=== PATIENT | female | born 1985 | race Caucasian/White ===

== ENCOUNTER → 2023-05-16 | Outpatient (REF) | payer BC | LOC: M WUC 19:14 | PROVIDERS: ATTEND Nurse Practitioner Family | DX: R30.0 Dysuria (principal) ==

== ENCOUNTER → 2023-07-09 | Outpatient (REF) | payer OTHER, BC ==
[2023-07-09 10:01] LABS: APPEARANCE, URINE HAZY (CLEAR); BACTERIA, URINE AUTO NEGATIVE (NEGATIVE); BILIRUBIN, URINE AUTO NEGATIVE (NEGATIVE); BLOOD, URINE BLOOD NEGATIVE (NEGATIVE); COLOR, URINE YELLOW (YELLOW); GLUCOSE, URINE (UA) AUTO NEGATIVE (NEGATIVE); KETONE, URINE AUTO TRACE mg/dL (NEGATIVE); LEUKOCYTE ESTERASE, URINE AUTO NEGATIVE (NEGATIVE); MUCUS, URINE SMALL (NEGATIVE); NITRITE, URINE AUTO NEGATIVE (NEGATIVE); PROTEIN, URINE AUTO 1+ mg/dL (NEGATIVE); RBC, URINE AUTO 0 /HPF (0-3); SPECIFIC GRAVITY URINE AUTO 1.027 (1.002-1.035); SQUAMOUS EPITHELIAL CELL UR AU 5 /HPF (0-6); UROBILINOGEN, URINE AUTO 0.2 mg/dL (0.0-2.0); WBC, URINE AUTO 1 /HPF (0-3)
== END ==
LOC: M SMT 09:44
PROVIDERS: ATTEND Physician Assistant
DX: R31.21 Asymptomatic microscopic hematuria (principal)

== ENCOUNTER → 2023-08-14 | Outpatient (CLI) | payer OTHER ==
[2023-08-14 13:31] LABS: HEMATOCRIT 42.9 % (36.0-47.0); HEMATOCRIT 43.5 % (36.0-47.0); HEMOGLOBIN 14.2 g/dl (12.0-15.5); MEAN CORPUSCULAR HEMOGLOBIN 31.7 pg (27.0-33.0); MEAN CORPUSCULAR HGB CONC 32.6 g/dl (32.0-36.5); MEAN CORPUSCULAR VOLUME 97.1 fl (80.0-96.0); PLATELET COUNT, AUTOMATED 384 10^3/uL (150-450); RED BLOOD COUNT 4.48 10^6/uL (4.00-5.40); WHITE BLOOD COUNT 10.2 10^3/uL (4.0-10.0)
[2023-08-14 14:05] LABS: THYROID STIMULATING HORMONE 2.845 uIU/ML (0.55-4.78); THYROXINE (T4) 13.1 UG/DL (4.5-10.9)
[2023-08-14 14:06] LABS: FREE T4 1.12 NG/DL (0.89-1.76); VITAMIN B12 LEVEL 306 PG/ML (211-911)
[2023-08-14 14:07] LABS: ALBUMIN 3.1 G/DL (3.2-5.2); ALKALINE PHOSPHATASE 66 U/L (46-116); ALT/SGPT 20 U/L (7.0-40); AST/SGOT 11 U/L (<34); BILIRUBIN,TOTAL 0.5 MG/DL (0.3-1.2); BLOOD UREA NITROGEN 14 MG/DL (9-23); CALCIUM LEVEL 8.9 MG/DL (8.5-10.1); CARBON DIOXIDE LEVEL 28 MMOL/L (20-31); CHLORIDE LEVEL 103 MMOL/L (98-107); CHOLESTEROL LEVEL 190 MG/DL (<200); CHOLESTEROL RISK RATIO 3.25 (<5); CREATININE FOR GFR 0.58 MG/DL (0.55-1.30); GLOMERULAR FILTRATION RATE > 60.0 (>60); GLUCOSE, FASTING 102 MG/DL (60-100); HDL CHOLESTEROL 58.3 MG/DL (>40); LDL CHOLESTEROL 110.7 MG/DL (<100); NON-HDL-C 131.7 MG/DL; POTASSIUM SERUM 3.9 MMOL/L (3.5-5.1); SODIUM LEVEL 141 MMOL/L (136-145); TOTAL 25(OH) VITAMIN D 59.2 NG/ML (20.0-100.0); TOTAL PROTEIN 6.4 G/DL (5.7-8.2); TRIGLYCERIDES LEVEL 105 MG/DL (<150)
[2023-08-14 14:10] LABS: FREE THYROXINE INDEX 3.6 % (1.3-4.8); T UPTAKE 27.7 % (22.5-37.0); THYROID PEROXIDASE ANTIBODY < 28.0 U/ML (<60.0)
[2023-08-14 14:30] LABS: HEMOGLOBIN A1c 6.1 % (4.0-6.0)
[2023-08-14 14:38] LABS: HEPATITIS C VIRUS ABY INDEX 0.05 INDEX (<0.8)
== END ==
LOC: M PLALAB 11:31
PROVIDERS: ATTEND Student in an Organized Health Care Education/Training Program
DX: M06.00 Rheumatoid arthritis without rheumatoid factor, unspecified site (principal); Z76.89 Persons encountering health services in other specified circumstances; Z79.52 Long term (current) use of systemic steroids; E55.9 Vitamin D deficiency, unspecified; R20.2 Paresthesia of skin

== ENCOUNTER → 2023-09-14 | Outpatient (CLI) | payer OTHER | LOC: M PLAIMG 14:58 | PROVIDERS: ATTEND Physician Assistant | DX: J45.40 Moderate persistent asthma, uncomplicated (principal) ==

== ENCOUNTER → 2023-09-14 | Outpatient (CLI) | payer OTHER | LOC: M PLAIMG 14:59 | PROVIDERS: ATTEND Physician Assistant | DX: Z87.442 Personal history of urinary calculi (principal) ==

== ENCOUNTER → 2023-10-09 | Outpatient (REF) | payer OTHER ==
[2023-10-09 18:33] LABS: APPEARANCE, URINE HAZY (CLEAR); BACTERIA, URINE AUTO 1+ (NEGATIVE); BILIRUBIN, URINE AUTO NEGATIVE (NEGATIVE); BLOOD, URINE BLOOD 1+ (NEGATIVE); COLOR, URINE YELLOW (YELLOW); GLUCOSE, URINE (UA) AUTO NEGATIVE (NEGATIVE); KETONE, URINE AUTO NEGATIVE (NEGATIVE); LEUKOCYTE ESTERASE, URINE AUTO 3+ (NEGATIVE); MUCUS, URINE MODERATE (NEGATIVE); NITRITE, URINE AUTO POSITIVE (NEGATIVE); PROTEIN, URINE AUTO 2+ mg/dL (NEGATIVE); RBC, URINE AUTO 23 /HPF (0-3); SPECIFIC GRAVITY URINE AUTO 1.019 (1.002-1.035); SQUAMOUS EPITHELIAL CELL UR AU 4 /HPF (0-6); UROBILINOGEN, URINE AUTO 0.2 mg/dL (0.0-2.0); WBC, URINE AUTO TNTC /HPF (0-3)
== END ==
LOC: EEVIPCON 17:09 → M SMT 17:09
PROVIDERS: ATTEND Physician Assistant
DX: R30.0 Dysuria (principal)

== ENCOUNTER → 2023-10-22 | Outpatient (REF) | payer OTHER ==
[2023-10-22 18:27] LABS: APPEARANCE, URINE TURBID (CLEAR); BACTERIA, URINE AUTO NEGATIVE (NEGATIVE); BILIRUBIN, URINE AUTO NEGATIVE (NEGATIVE); BLOOD, URINE BLOOD NEGATIVE (NEGATIVE); COLOR, URINE AMBER (YELLOW); GLUCOSE, URINE (UA) AUTO 2+ mg/dL (NEGATIVE); KETONE, URINE AUTO NEGATIVE (NEGATIVE); LEUKOCYTE ESTERASE, URINE AUTO TRACE (NEGATIVE); MUCUS, URINE LARGE (NEGATIVE); NITRITE, URINE AUTO NEGATIVE (NEGATIVE); PROTEIN, URINE AUTO NEGATIVE (NEGATIVE); RBC, URINE AUTO 6 /HPF (0-3); SPECIFIC GRAVITY URINE AUTO 1.032 (1.002-1.035); SQUAMOUS EPITHELIAL CELL UR AU 1 /HPF (0-6); UROBILINOGEN, URINE AUTO 0.2 mg/dL (0.0-2.0); WBC, URINE AUTO 40 /HPF (0-3)
== END ==
LOC: M SMT 16:59
PROVIDERS: ATTEND Physician Assistant
DX: N39.0 Urinary tract infection, site not specified (principal)

== ENCOUNTER → 2023-12-04 | Outpatient (CLI) | payer OTHER ==
[2023-12-04 17:57] LABS: HEMOGLOBIN A1c 7.1 % (4.0-6.0)
[2023-12-05 11:00] LABS: MALB URINE SIEMENS < 3.0 MG/L; MAU/CREAT RATIO 3.2 MCG/MG (0.0-30.0)
[2023-12-05 11:38] LABS: APPEARANCE, URINE TURBID (CLEAR); BACTERIA, URINE AUTO 1+ (NEGATIVE); BILIRUBIN, URINE AUTO NEGATIVE (NEGATIVE); BLOOD, URINE BLOOD NEGATIVE (NEGATIVE); COLOR, URINE AMBER (YELLOW); GLUCOSE, URINE (UA) AUTO NEGATIVE (NEGATIVE); KETONE, URINE AUTO NEGATIVE (NEGATIVE); LEUKOCYTE ESTERASE, URINE AUTO NEGATIVE (NEGATIVE); MUCUS, URINE SMALL (NEGATIVE); NITRITE, URINE AUTO NEGATIVE (NEGATIVE); PROTEIN, URINE AUTO NEGATIVE (NEGATIVE); RBC, URINE AUTO 1 /HPF (0-3); SPECIFIC GRAVITY URINE AUTO 1.017 (1.002-1.035); SQUAMOUS EPITHELIAL CELL UR AU 2 /HPF (0-6); UROBILINOGEN, URINE AUTO 0.2 mg/dL (0.0-2.0); WBC, URINE AUTO 1 /HPF (0-3)
== END ==
LOC: M PLALAB 16:40
PROVIDERS: ATTEND Family Medicine
DX: E11.29 Type 2 diabetes mellitus with other diabetic kidney complication (principal)

== ENCOUNTER → 2024-01-23 | Outpatient (REF) | payer OTHER ==
[2024-01-23 18:18] LABS: APPEARANCE, URINE HAZY (CLEAR); BACTERIA, URINE AUTO 1+ (NEGATIVE); BILIRUBIN, URINE AUTO NEGATIVE (NEGATIVE); BLOOD, URINE BLOOD NEGATIVE (NEGATIVE); COLOR, URINE YELLOW (YELLOW); GLUCOSE, URINE (UA) AUTO NEGATIVE (NEGATIVE); KETONE, URINE AUTO NEGATIVE (NEGATIVE); LEUKOCYTE ESTERASE, URINE AUTO NEGATIVE (NEGATIVE); MUCUS, URINE SMALL (NEGATIVE); NITRITE, URINE AUTO NEGATIVE (NEGATIVE); PROTEIN, URINE AUTO NEGATIVE (NEGATIVE); RBC, URINE AUTO 0 /HPF (0-3); SPECIFIC GRAVITY URINE AUTO 1.026 (1.002-1.035); SQUAMOUS EPITHELIAL CELL UR AU 2 /HPF (0-6); UROBILINOGEN, URINE AUTO 0.2 mg/dL (0.0-2.0); WBC, URINE AUTO 1 /HPF (0-3)
== END ==
LOC: M SMT 16:53
PROVIDERS: ATTEND Physician Assistant
DX: N39.0 Urinary tract infection, site not specified (principal)

== ENCOUNTER → 2024-01-23 | Outpatient (CLI) | payer OTHER | LOC: M PLAIMG 13:58 | PROVIDERS: ATTEND Physician Assistant Medical | DX: M25.571 Pain in right ankle and joints of right foot (principal); M77.31 Calcaneal spur, right foot ==

== ENCOUNTER → 2024-02-26 | Outpatient (CLI) | payer OTHER | LOC: M SOG 08:00 | PROVIDERS: ATTEND Physician Assistant | DX: M25.571 Pain in right ankle and joints of right foot (principal); M77.31 Calcaneal spur, right foot; M19.071 Primary osteoarthritis, right ankle and foot ==

== ENCOUNTER → 2024-03-05 | Outpatient (CLI) | payer OTHER ==
[2024-03-05 18:26] LABS: BASO % 0.3 % (0.0-1.0); EOS % 0.1 % (0.0-3.0); HEMATOCRIT 44.1 % (36.0-47.0); HEMOGLOBIN 14.8 g/dl (12.0-15.5); LYMPH # 1.6 10^3/uL (1.5-5.0); LYMPH % 13.3 % (24.0-44.0); MEAN CORPUSCULAR HEMOGLOBIN 32.2 pg (27.0-33.0); MEAN CORPUSCULAR HGB CONC 33.6 g/dl (32.0-36.5); MEAN CORPUSCULAR VOLUME 95.9 fl (80.0-96.0); MONO # 0.5 10^3/uL (0.0-0.8); MONO % 4.1 % (2.0-8.0); NEUTROPHILS # 9.8 10^3/uL (1.5-8.5); NEUTROPHILS % 81.9 % (36.0-66.0); PLATELET COUNT, AUTOMATED 368 10^3/uL (150-450)
[2024-03-05 18:56] LABS: THYROID STIMULATING HORMONE 1.096 uIU/ML (0.55-4.78)
[2024-03-05 18:57] LABS: FERRITIN 66.7 NG/ML (7.3-270.7)
[2024-03-05 18:58] LABS: FREE T4 1.08 NG/DL (0.89-1.76)
[2024-03-05 18:59] LABS: ALBUMIN 3.5 G/DL (3.2-5.2); ALKALINE PHOSPHATASE 66 U/L (46-116); ALT/SGPT 24 U/L (7.0-40); AST/SGOT < 8 U/L (<34); BILIRUBIN,TOTAL 0.8 MG/DL (0.3-1.2); BLOOD UREA NITROGEN 15 MG/DL (9-23); CALCIUM LEVEL 9.7 MG/DL (8.5-10.1); CARBON DIOXIDE LEVEL 27 MMOL/L (20-31); CHLORIDE LEVEL 103 MMOL/L (98-107); CREATININE FOR GFR 0.61 MG/DL (0.55-1.30); GLOMERULAR FILTRATION RATE > 60.0 (>60); GLUCOSE, FASTING 114 MG/DL (60-100); POTASSIUM SERUM 4.3 MMOL/L (3.5-5.1); SODIUM LEVEL 139 MMOL/L (136-145); TOTAL PROTEIN 6.7 G/DL (5.7-8.2)
[2024-03-05 19:00] LABS: HEMOGLOBIN A1c 6.7 % (4.0-6.0)
== END ==
LOC: M PLALAB 16:29
PROVIDERS: ATTEND Family Medicine
DX: E11.29 Type 2 diabetes mellitus with other diabetic kidney complication (principal); R68.89 Other general symptoms and signs; M32.9 Systemic lupus erythematosus, unspecified; R11.2 Nausea with vomiting, unspecified

== ENCOUNTER → 2024-03-05 | Outpatient (CLI) | payer OTHER ==
[2024-03-05 18:17] LABS: APPEARANCE, URINE HAZY (CLEAR); BACTERIA, URINE AUTO NEGATIVE (NEGATIVE); BILIRUBIN, URINE AUTO NEGATIVE (NEGATIVE); BLOOD, URINE BLOOD NEGATIVE (NEGATIVE); COLOR, URINE YELLOW (YELLOW); GLUCOSE, URINE (UA) AUTO NEGATIVE (NEGATIVE); KETONE, URINE AUTO TRACE mg/dL (NEGATIVE); LEUKOCYTE ESTERASE, URINE AUTO NEGATIVE (NEGATIVE); MUCUS, URINE SMALL (NEGATIVE); NITRITE, URINE AUTO NEGATIVE (NEGATIVE); PROTEIN, URINE AUTO NEGATIVE (NEGATIVE); RBC, URINE AUTO 0 /HPF (0-3); SPECIFIC GRAVITY URINE AUTO 1.021 (1.002-1.035); SQUAMOUS EPITHELIAL CELL UR AU 1 /HPF (0-6); UROBILINOGEN, URINE AUTO 0.2 mg/dL (0.0-2.0); WBC, URINE AUTO 0 /HPF (0-3)
== END ==
LOC: M PLAIMG 16:27
PROVIDERS: ATTEND Physician Assistant
DX: Z87.442 Personal history of urinary calculi (principal)

== ENCOUNTER → 2024-04-28 | Outpatient (CLI) | payer OTHER | LOC: M SOG 08:00 | PROVIDERS: ATTEND Physician Assistant | DX: M25.571 Pain in right ankle and joints of right foot (principal) ==

== ENCOUNTER → 2024-05-20 | Outpatient (REF) | payer OTHER ==
[2024-05-20 18:17] LABS: APPEARANCE, URINE CLEAR (CLEAR); BACTERIA, URINE AUTO 1+ (NEGATIVE); BILIRUBIN, URINE AUTO NEGATIVE (NEGATIVE); BLOOD, URINE BLOOD NEGATIVE (NEGATIVE); COLOR, URINE YELLOW (YELLOW); GLUCOSE, URINE (UA) AUTO NEGATIVE (NEGATIVE); KETONE, URINE AUTO NEGATIVE (NEGATIVE); LEUKOCYTE ESTERASE, URINE AUTO NEGATIVE (NEGATIVE); MUCUS, URINE SMALL (NEGATIVE); NITRITE, URINE AUTO NEGATIVE (NEGATIVE); PROTEIN, URINE AUTO NEGATIVE (NEGATIVE); RBC, URINE AUTO 0 /HPF (0-3); SPECIFIC GRAVITY URINE AUTO 1.017 (1.002-1.035); SQUAMOUS EPITHELIAL CELL UR AU 1 /HPF (0-6); UROBILINOGEN, URINE AUTO 0.2 mg/dL (0.0-2.0); WBC, URINE AUTO 1 /HPF (0-3)
== END ==
LOC: M SMT 16:55
PROVIDERS: ATTEND Physician Assistant
DX: R30.0 Dysuria (principal)

== ENCOUNTER 2024-06-30 12:18 | Emergency (ER) | payer OTHER ==
[~2024-06-30] VITALS: Ht 170.2 cm; Wt 162.6 kg
[2024-06-30 13:04] LABS: BASO % 0.3 % (0.0-1.0); EOS % 0.1 % (0.0-3.0); HEMATOCRIT 50.4 % (36.0-47.0); HEMOGLOBIN 17.1 g/dl (12.0-15.5); LYMPH % 17.5 % (24.0-44.0); MEAN CORPUSCULAR HEMOGLOBIN 32.1 pg (27.0-33.0); MEAN CORPUSCULAR HGB CONC 33.9 g/dl (32.0-36.5); MEAN CORPUSCULAR VOLUME 94.7 fl (80.0-96.0); MONO # 0.8 10^3/uL (0.0-0.8); MONO % 6.7 % (2.0-8.0); NEUTROPHILS # 8.6 10^3/uL (1.5-8.5); NEUTROPHILS % 75.1 % (36.0-66.0); PLATELET COUNT, AUTOMATED 465 10^3/uL (150-450); RED BLOOD COUNT 5.32 10^6/uL (4.00-5.40); WHITE BLOOD COUNT 11.5 10^3/uL (4.0-10.0)
[2024-06-30 13:19] LABS: ERYTHROCYTE SEDIMENTATION RATE 49 mm/hr (0-20)
[2024-06-30 13:20] LABS: LIPASE 37 U/L (12-53)
[2024-06-30 13:22] LABS: ALBUMIN 4.2 G/DL (3.2-5.2); ALKALINE PHOSPHATASE 82 U/L (46-116); ALT/SGPT 30 U/L (7.0-40); AST/SGOT 15 U/L (<34); BILIRUBIN,DIRECT 0.3 MG/DL (<0.4); BILIRUBIN,TOTAL 0.9 MG/DL (0.3-1.2); BLOOD UREA NITROGEN 19 MG/DL (9-23); CARBON DIOXIDE LEVEL 22 MMOL/L (20-31); CHLORIDE LEVEL 102 MMOL/L (98-107); CK-MB VALUE MASS < 1.0 NG/ML (<3.6); CPK CREATINE PHOSPHOKINASE 88 U/L (34-145); CREATININE FOR GFR 0.77 MG/DL (0.55-1.30); GLOMERULAR FILTRATION RATE > 60.0 (>60); GLUCOSE, FASTING 189 MG/DL (60-100); MB/CK RELATIVE INDEX 1.13 (< OR =4); POTASSIUM SERUM 3.8 MMOL/L (3.5-5.1); SODIUM LEVEL 136 MMOL/L (136-145); TOTAL PROTEIN 7.9 G/DL (5.7-8.2)
[2024-06-30 13:26] LABS: FREE T4 1.74 NG/DL (0.89-1.76); THYROID STIMULATING HORMONE 2.437 uIU/ML (0.55-4.78)
[2024-06-30 13:31] LABS: HCG, SERUM QUALITATIVE NEGATIVE (NEGATIVE)
[2024-06-30] MEDS ORDERED: ISOVUE-370 76% 100ML VIAL As Ordered ONE (14:40)
[2024-06-30] MEDS: NS 1,000 ML IV ONE (15:14)
[2024-06-30 15:28] LABS: CK-MB VALUE MASS < 1.0 NG/ML (<3.6)
[2024-06-30 15:29] LABS: CPK CREATINE PHOSPHOKINASE 91 U/L (34-145); MB/CK RELATIVE INDEX 1.09 (< OR =4)
[2024-06-30 17:15] VITALS: BP 126/83
[2024-06-30 17:18] VITALS: TEMP 98.6; O2SAT 98
== END 2024-06-30 17:54 | disposition home or self-care (01) ==
LOC: M ED 12:18
DX: U07.1 COVID-19 (principal); R00.0 Tachycardia, unspecified; E11.9 Type 2 diabetes mellitus without complications; J45.909 Unspecified asthma, uncomplicated; E55.9 Vitamin D deficiency, unspecified; G47.33 Obstructive sleep apnea (adult) (pediatric); Z88.1 Allergy status to other antibiotic agents; Z88.2 Allergy status to sulfonamides; Z88.8 Allergy status to other drugs, medicaments and biological substances; Z91.040 Latex allergy status
CPT/HCPCS: 71045; 71275; 80048; 80076; 82550; 82553; 83690; 84439; 84443; 84484; 84703; 85025; 85652; 85730; 86140; 87486; 87581; 87633; 87798; 93005; 93041; 94760; 96360; 99285; Q9967

== ENCOUNTER → 2024-07-15 | Outpatient (REF) | payer OTHER | LOC: M LAB REF 12:31 | PROVIDERS: ATTEND Internal Medicine Pulmonary Disease | DX: J45.40 Moderate persistent asthma, uncomplicated (principal) ==

== ENCOUNTER 2024-07-29 15:43 | Outpatient (CLI) | payer OTHER ==
[~2024-07-29] VITALS: Ht 172.7 cm; Wt 176.3 kg
[2024-07-29 16:02] VITALS: BP 132/64; O2SAT 99
[2024-07-29] MEDS: ERTAPENEM SODIUM 1 GM in NS MINI-BAG PLUS 50 ML IV ONE (16:17)
[2024-07-29 16:50] VITALS: BP 128/62; O2SAT 99
== END 2024-07-29 16:19 | disposition home or self-care (01) ==
LOC: M INFU 15:43
PROVIDERS: ATTEND Physician Assistant
DX: J47.9 Bronchiectasis, uncomplicated (principal); B96.20 Unspecified Escherichia coli [E. coli] as the cause of diseases classified elsewhere; Z16.12 Extended spectrum beta lactamase (ESBL) resistance; Z88.1 Allergy status to other antibiotic agents; Z88.2 Allergy status to sulfonamides; Z91.040 Latex allergy status
CPT/HCPCS: 96365; J1335

== ENCOUNTER 2024-07-30 15:40 | Outpatient (CLI) | payer OTHER ==
[~2024-07-30] VITALS: Ht 175.3 cm; Wt 176.0 kg
[2024-07-30 15:53] VITALS: BP 140/83; O2SAT 97
[2024-07-30] MEDS: ERTAPENEM SODIUM 1 GM in NS MINI-BAG PLUS 50 ML IV ONE (16:14)
[2024-07-30 16:53] VITALS: BP 163/87; O2SAT 95
== END 2024-07-30 16:55 ==
LOC: M INFU 15:40
PROVIDERS: ATTEND Physician Assistant
DX: B96.20 Unspecified Escherichia coli [E. coli] as the cause of diseases classified elsewhere (principal); J47.9 Bronchiectasis, uncomplicated; Z16.12 Extended spectrum beta lactamase (ESBL) resistance
CPT/HCPCS: 96365; J1335

== ENCOUNTER 2024-07-31 16:40 | Outpatient (CLI) | payer OTHER ==
[~2024-07-31] VITALS: Ht 170.2 cm; Wt 167.0 kg
[2024-07-31 16:40] VITALS: BP 148/90; O2SAT 98
[2024-07-31] MEDS: ERTAPENEM SODIUM 1 GM in NS MINI-BAG PLUS 50 ML IV ONE (16:43)
[2024-07-31 17:40] VITALS: BP 140/87; O2SAT 99
== END 2024-07-31 17:40 ==
LOC: M INFU 16:40
PROVIDERS: ATTEND Physician Assistant
DX: B96.20 Unspecified Escherichia coli [E. coli] as the cause of diseases classified elsewhere (principal); J47.9 Bronchiectasis, uncomplicated; Z16.12 Extended spectrum beta lactamase (ESBL) resistance
CPT/HCPCS: 96365; J1335

== ENCOUNTER 2024-08-01 16:10 | Outpatient (CLI) | payer OTHER ==
[2024-08-01 16:10] VITALS: BP 128/82; O2SAT 96
[2024-08-01] MEDS: ERTAPENEM SODIUM 1 GM in NS MINI-BAG PLUS 50 ML IV ONE (16:13)
[2024-08-01 16:47] VITALS: BP 151/86; O2SAT 97
== END 2024-08-05 16:50 ==
LOC: M INFU 16:10
PROVIDERS: ATTEND Physician Assistant
DX: J47.9 Bronchiectasis, uncomplicated (principal); B96.20 Unspecified Escherichia coli [E. coli] as the cause of diseases classified elsewhere; Z16.12 Extended spectrum beta lactamase (ESBL) resistance; Z88.1 Allergy status to other antibiotic agents; Z88.2 Allergy status to sulfonamides; Z88.8 Allergy status to other drugs, medicaments and biological substances; Z91.040 Latex allergy status
CPT/HCPCS: 96365; J1335

== ENCOUNTER 2024-08-02 15:57 | Outpatient (CLI) | payer OTHER ==
[2024-08-02 16:00] VITALS: BP 140/80; O2SAT 97
[2024-08-02] MEDS: ERTAPENEM SODIUM 1 GM in NS MINI-BAG PLUS 50 ML IV ONE (16:02)
[2024-08-02 16:45] VITALS: BP 136/87; O2SAT 97
== END 2024-08-02 16:45 | disposition home or self-care (01) ==
LOC: M INFU 15:57
PROVIDERS: ATTEND Physician Assistant
DX: J47.9 Bronchiectasis, uncomplicated (principal); B96.20 Unspecified Escherichia coli [E. coli] as the cause of diseases classified elsewhere; Z16.12 Extended spectrum beta lactamase (ESBL) resistance; Z88.1 Allergy status to other antibiotic agents; Z88.2 Allergy status to sulfonamides; Z88.8 Allergy status to other drugs, medicaments and biological substances; Z91.040 Latex allergy status
CPT/HCPCS: 96365; J1335

== ENCOUNTER 2024-08-03 15:50 | Outpatient (CLI) | payer OTHER ==
[~2024-08-03] VITALS: Ht 170.2 cm; Wt 167.0 kg
[2024-08-03 15:55] VITALS: BP 124/70; O2SAT 97
[2024-08-03] MEDS: ERTAPENEM SODIUM 1 GM in NS MINI-BAG PLUS 50 ML IV ONE (15:55)
[2024-08-03 16:28] VITALS: BP 135/74; O2SAT 96
== END 2024-08-03 16:30 | disposition home or self-care (01) ==
LOC: M INFU 15:50
PROVIDERS: ATTEND Physician Assistant
DX: J47.9 Bronchiectasis, uncomplicated (principal); B96.20 Unspecified Escherichia coli [E. coli] as the cause of diseases classified elsewhere; Z16.12 Extended spectrum beta lactamase (ESBL) resistance; Z88.1 Allergy status to other antibiotic agents; Z88.2 Allergy status to sulfonamides; Z88.8 Allergy status to other drugs, medicaments and biological substances; Z91.040 Latex allergy status
CPT/HCPCS: 96365; J1335

== ENCOUNTER 2024-08-04 15:45 | Outpatient (CLI) | payer OTHER ==
[2024-08-04 15:45] VITALS: BP 139/78; O2SAT 98
[2024-08-04] MEDS: ERTAPENEM SODIUM 1 GM in NS MINI-BAG PLUS 50 ML IV ONE (15:51)
[2024-08-04 16:18] VITALS: BP 134/71; O2SAT 97
== END 2024-08-04 16:20 ==
LOC: M INFU 15:45
PROVIDERS: ATTEND Physician Assistant
DX: J47.9 Bronchiectasis, uncomplicated (principal); B96.20 Unspecified Escherichia coli [E. coli] as the cause of diseases classified elsewhere; Z16.12 Extended spectrum beta lactamase (ESBL) resistance
CPT/HCPCS: 96365; J1335

== ENCOUNTER 2024-08-05 16:24 | Outpatient (CLI) | payer OTHER ==
[2024-08-05] MEDS: ERTAPENEM SODIUM 1 GM in NS MINI-BAG PLUS 50 ML IV SCH (16:37)
[2024-08-05 17:15] VITALS: BP 147/82; O2SAT 97
== END 2024-08-05 17:15 ==
LOC: M INFU 16:24
PROVIDERS: ATTEND Internal Medicine Pulmonary Disease
DX: J47.9 Bronchiectasis, uncomplicated (principal); B96.20 Unspecified Escherichia coli [E. coli] as the cause of diseases classified elsewhere; Z16.12 Extended spectrum beta lactamase (ESBL) resistance; Z88.2 Allergy status to sulfonamides; Z88.1 Allergy status to other antibiotic agents; Z88.8 Allergy status to other drugs, medicaments and biological substances; Z91.040 Latex allergy status
CPT/HCPCS: 96365; J1335

== ENCOUNTER 2024-08-06 16:35 | Outpatient (CLI) | payer OTHER ==
[2024-08-06 16:35] VITALS: BP 142/80; O2SAT 98
[2024-08-06] MEDS: ERTAPENEM SODIUM 1 GM in NS MINI-BAG PLUS 50 ML IV ONE (16:45)
[2024-08-06 17:15] VITALS: BP 124/70; O2SAT 99
== END 2024-08-06 17:20 ==
LOC: M INFU 16:35
PROVIDERS: ATTEND Internal Medicine Pulmonary Disease
DX: H47.9 Unspecified disorder of visual pathways (principal); B96.20 Unspecified Escherichia coli [E. coli] as the cause of diseases classified elsewhere; Z16.12 Extended spectrum beta lactamase (ESBL) resistance
CPT/HCPCS: 96365; J1335

== ENCOUNTER → 2024-08-06 | Outpatient (CLI) | payer OTHER ==
[2024-08-06 13:52] LABS: BASO % 0.4 % (0.0-1.0); EOS % 0.4 % (0.0-3.0); HEMATOCRIT 44.3 % (36.0-47.0); HEMOGLOBIN 14.8 g/dl (12.0-15.5); LYMPH # 1.8 10^3/uL (1.5-5.0); MEAN CORPUSCULAR HEMOGLOBIN 32.3 pg (27.0-33.0); MEAN CORPUSCULAR HGB CONC 33.4 g/dl (32.0-36.5); MEAN CORPUSCULAR VOLUME 96.7 fl (80.0-96.0); MONO # 0.6 10^3/uL (0.0-0.8); MONO % 6.9 % (2.0-8.0); NEUTROPHILS % 71.1 % (36.0-66.0); PLATELET COUNT, AUTOMATED 360 10^3/uL (150-450); RED BLOOD COUNT 4.58 10^6/uL (4.00-5.40); WHITE BLOOD COUNT 8.5 10^3/uL (4.0-10.0)
[2024-08-06 13:57] LABS: FERRITIN 80.4 NG/ML (7.3-270.7)
[2024-08-06 14:02] LABS: ALBUMIN 3.2 G/DL (3.2-5.2); ALKALINE PHOSPHATASE 69 U/L (35-104); ALT/SGPT 29 U/L (7.0-40); AST/SGOT 11 U/L (<34); BILIRUBIN,TOTAL 0.6 MG/DL (0.3-1.2); BLOOD UREA NITROGEN 11 MG/DL (9-23); CALCIUM LEVEL 9.5 MG/DL (8.5-10.1); CARBON DIOXIDE LEVEL 28 MMOL/L (20-31); CHLORIDE LEVEL 106 MMOL/L (98-107); CREATININE FOR GFR 0.55 MG/DL (0.55-1.30); GLOMERULAR FILTRATION RATE > 60.0 (>60); GLUCOSE, FASTING 102 MG/DL (60-100); SODIUM LEVEL 141 MMOL/L (136-145); TOTAL PROTEIN 6.5 G/DL (5.7-8.2)
[2024-08-06 14:32] LABS: HEMOGLOBIN A1c 6.1 % (4.0-6.0)
== END ==
LOC: M PLALAB 09:44
PROVIDERS: ATTEND Family Medicine
DX: E11.29 Type 2 diabetes mellitus with other diabetic kidney complication (principal); J18.9 Pneumonia, unspecified organism; R53.81 Other malaise

== ENCOUNTER 2024-08-07 16:30 | Outpatient (CLI) | payer OTHER ==
[2024-08-07] MEDS: ERTAPENEM SODIUM 1 GM in NS MINI-BAG PLUS 50 ML IV ONE (16:48)
[2024-08-07 17:17] VITALS: BP 135/90; O2SAT 99
== END 2024-08-07 17:20 ==
LOC: M INFU 16:30
PROVIDERS: ATTEND Internal Medicine Pulmonary Disease
DX: J47.9 Bronchiectasis, uncomplicated (principal); B96.20 Unspecified Escherichia coli [E. coli] as the cause of diseases classified elsewhere; Z16.12 Extended spectrum beta lactamase (ESBL) resistance
CPT/HCPCS: 96365; J1335

== ENCOUNTER 2024-08-08 16:40 | Outpatient (CLI) | payer OTHER ==
[~2024-08-08] VITALS: Ht 170.2 cm; Wt 165.0 kg
[2024-08-08 16:40] VITALS: BP 123/62; O2SAT 99
[2024-08-08] MEDS: ERTAPENEM SODIUM 1 GM in NS MINI-BAG PLUS 50 ML IV ONE (17:06)
[2024-08-08 17:40] VITALS: BP 98/48; O2SAT 97
== END 2024-08-08 17:40 ==
LOC: M INFU 16:40
PROVIDERS: ATTEND Internal Medicine Pulmonary Disease
DX: J47.9 Bronchiectasis, uncomplicated (principal); B96.20 Unspecified Escherichia coli [E. coli] as the cause of diseases classified elsewhere; Z16.12 Extended spectrum beta lactamase (ESBL) resistance; Z88.2 Allergy status to sulfonamides; Z88.1 Allergy status to other antibiotic agents; Z88.8 Allergy status to other drugs, medicaments and biological substances; Z91.040 Latex allergy status
CPT/HCPCS: 96365; J1335

== ENCOUNTER 2024-08-09 12:03 | Outpatient (CLI) | payer OTHER ==
[2024-08-09] MEDS: ERTAPENEM SODIUM 1 GM in NS MINI-BAG PLUS 50 ML IV ONE (12:09)
[2024-08-09 12:10] VITALS: BP 132/70; O2SAT 100
[2024-08-09 12:41] VITALS: BP 148/73; O2SAT 100
== END 2024-08-09 12:45 | disposition home or self-care (01) ==
LOC: M INFU 12:03
PROVIDERS: ATTEND Internal Medicine Pulmonary Disease
DX: J47.9 Bronchiectasis, uncomplicated (principal); Z16.12 Extended spectrum beta lactamase (ESBL) resistance; B96.20 Unspecified Escherichia coli [E. coli] as the cause of diseases classified elsewhere
CPT/HCPCS: 96365; J1335

== ENCOUNTER 2024-08-10 09:00 | Outpatient (CLI) | payer OTHER ==
[~2024-08-10] VITALS: Ht 172.7 cm; Wt 176.3 kg
[2024-08-10] MEDS: ERTAPENEM SODIUM 1 GM in NS MINI-BAG PLUS 50 ML IV ONE (09:04)
[2024-08-10 09:32] VITALS: BP 125/71; O2SAT 98
== END 2024-08-10 09:40 | disposition home or self-care (01) ==
LOC: M INFU 09:00
PROVIDERS: ATTEND Internal Medicine Pulmonary Disease
DX: J47.9 Bronchiectasis, uncomplicated (principal); B96.20 Unspecified Escherichia coli [E. coli] as the cause of diseases classified elsewhere; Z16.12 Extended spectrum beta lactamase (ESBL) resistance
CPT/HCPCS: 96365; J1335

== ENCOUNTER 2024-08-11 16:05 | Outpatient (CLI) | payer OTHER ==
[~2024-08-11] VITALS: Ht 172.7 cm; Wt 176.3 kg
[2024-08-11 16:05] VITALS: BP 144/77; O2SAT 98
[2024-08-11] MEDS: ERTAPENEM SODIUM 1 GM in NS MINI-BAG PLUS 50 ML IV ONE (16:16)
[2024-08-11 16:55] VITALS: BP 130/71; O2SAT 97
== END 2024-08-11 16:55 ==
LOC: M INFU 16:05
PROVIDERS: ATTEND Internal Medicine Pulmonary Disease
DX: J47.9 Bronchiectasis, uncomplicated (principal); B96.20 Unspecified Escherichia coli [E. coli] as the cause of diseases classified elsewhere; Z16.12 Extended spectrum beta lactamase (ESBL) resistance
CPT/HCPCS: 96365; J1335

== ENCOUNTER 2024-09-08 11:50 | Emergency (ER) | payer OTHER ==
[~2024-09-08] VITALS: Ht 170.2 cm; Wt 169.0 kg
[2024-09-08 11:58] VITALS: TEMP 97
[2024-09-08 15:14] VITALS: BP 133/72; O2SAT 99
[2024-09-08] MEDS: KETOROLAC 60MG 2ML VIAL IM ONE (18:32)
[2024-09-08] MEDS ORDERED: TRAM50TA2 PO (19:31)
== END 2024-09-08 19:40 | disposition home or self-care (01) ==
LOC: M ED 11:50
DX: S22.42XA Multiple fractures of ribs, left side, initial encounter for closed fracture (principal); W19.XXXA Unspecified fall, initial encounter; Y92.9 Unspecified place or not applicable; Y93.9 Activity, unspecified; Y99.0 Civilian activity done for income or pay; E11.9 Type 2 diabetes mellitus without complications; M32.9 Systemic lupus erythematosus, unspecified; M06.9 Rheumatoid arthritis, unspecified; J45.909 Unspecified asthma, uncomplicated; J47.9 Bronchiectasis, uncomplicated; Z88.2 Allergy status to sulfonamides; Z88.1 Allergy status to other antibiotic agents; Z88.8 Allergy status to other drugs, medicaments and biological substances; Z91.040 Latex allergy status
CPT/HCPCS: 71101; 71250; 96372; 99284; J1885

== ENCOUNTER → 2024-10-07 | Outpatient (CLI) | payer OTHER ==
[~2024-10-07] MED LIST: TRAM50TA2 PO
[2024-10-07 14:48] LABS: IMMUNOGLOBULIN A 405.1 MG/DL (40-350); IMMUNOGLOBULIN G 715 MG/DL (650-1600)
[2024-10-07 14:56] LABS: HEPATITIS B SURFACE ANTIBODY NEGATIVE (POSITIVE)
[2024-10-07 15:09] LABS: HEPATITIS B SURFACE ANTIGEN NEGATIVE (NEGATIVE)
[2024-10-07 15:21] LABS: HIV 1&2 SCREEN NEGATIVE (NEGATIVE)
== END ==
LOC: M PLALAB 10:18
PROVIDERS: ATTEND Internal Medicine Infectious Disease
DX: B99.9 Unspecified infectious disease (principal)

== ENCOUNTER → 2024-10-07 | Outpatient (CLI) | payer OTHER | LOC: M PLAIMG 08:29 | PROVIDERS: ATTEND Physician Assistant | DX: Z87.442 Personal history of urinary calculi (principal) ==

== ENCOUNTER → 2024-10-22 | Outpatient (CLI) | payer OTHER ==
[2024-10-22 18:18] LABS: HEMOGLOBIN A1c 5.9 % (4.0-6.0)
[2024-10-22 18:33] LABS: CHOLESTEROL RISK RATIO 3.76 (<5); LDL CHOLESTEROL 90.4 MG/DL (<100)
[2024-10-22 18:35] LABS: TOTAL 25(OH) VITAMIN D 74.1 NG/ML (20.0-100.0)
[2024-10-22 18:44] LABS: CREATININE, URINE 250.4 MG/DL; MAU/CREAT RATIO 3.1 MCG/MG (0.0-30.0)
== END ==
LOC: M PLALAB 16:02
PROVIDERS: ATTEND Family Medicine
DX: E11.29 Type 2 diabetes mellitus with other diabetic kidney complication (principal); R80.9 Proteinuria, unspecified; E55.9 Vitamin D deficiency, unspecified

== ENCOUNTER → 2024-11-05 | Outpatient (CLI) | payer OTHER | LOC: M WHC 14:42 | PROVIDERS: ATTEND Family Medicine | DX: Z13.820 Encounter for screening for osteoporosis (principal) ==

== ENCOUNTER → 2024-12-22 | Outpatient (REF) | payer OTHER | LOC: M LAB REF 14:47 | PROVIDERS: ATTEND Internal Medicine Pulmonary Disease | DX: J47.9 Bronchiectasis, uncomplicated (principal) ==

== ENCOUNTER → 2024-12-24 | Outpatient (REF) | payer OTHER | LOC: M LAB REF 15:12 | PROVIDERS: ATTEND Internal Medicine Pulmonary Disease | DX: J47.9 Bronchiectasis, uncomplicated (principal) ==

== ENCOUNTER 2024-12-30 14:42 | Outpatient (CLI) | payer OTHER ==
[~2024-12-30] VITALS: Ht 170.2 cm; Wt 163.0 kg
[2024-12-30 15:25] VITALS: BP 131/76; O2SAT 99
[2024-12-30] MEDS: ERTAPENEM SODIUM 1 GM in NS MINI-BAG PLUS 50 ML IV ONE (16:09)
[2024-12-30 16:44] VITALS: BP 121/56; O2SAT 96
== END 2024-12-30 16:45 | disposition home or self-care (01) ==
LOC: M INFU 14:42
PROVIDERS: ATTEND Physician Assistant
DX: J15.5 Pneumonia due to Escherichia coli (principal); J47.9 Bronchiectasis, uncomplicated; J45.40 Moderate persistent asthma, uncomplicated; Z88.2 Allergy status to sulfonamides; Z88.1 Allergy status to other antibiotic agents; Z88.8 Allergy status to other drugs, medicaments and biological substances; Z91.040 Latex allergy status
CPT/HCPCS: 96365; J1335

== ENCOUNTER → 2024-12-31 | Outpatient (CLI) | payer OTHER ==
[~2024-12-31] VITALS: Ht 167.6 cm; Wt 163.6 kg
[2024-12-31 15:29] VITALS: BP 129/81; O2SAT 97
[2024-12-31] MEDS: ERTAPENEM SODIUM 1 GM in NS MINI-BAG PLUS 50 ML IV ONE (15:38)
[2024-12-31 16:21] VITALS: BP 148/80; O2SAT 98
== END ==
LOC: M INFU 15:14
PROVIDERS: ATTEND Physician Assistant
DX: J15.5 Pneumonia due to Escherichia coli (principal); J47.9 Bronchiectasis, uncomplicated; J45.40 Moderate persistent asthma, uncomplicated; Z88.2 Allergy status to sulfonamides; Z88.1 Allergy status to other antibiotic agents; Z88.8 Allergy status to other drugs, medicaments and biological substances; Z91.040 Latex allergy status
CPT/HCPCS: 96365; J1335

== ENCOUNTER 2025-01-01 15:00 | Outpatient (CLI) | payer OTHER ==
[~2025-01-01] VITALS: Ht 170.2 cm; Wt 176.3 kg
[2025-01-01 15:00] VITALS: BP 141/82; O2SAT 99
[2025-01-01] MEDS: ERTAPENEM SODIUM 1 GM in NS MINI-BAG PLUS 50 ML IV ONE (15:15)
== END 2025-01-01 15:55 ==
LOC: M INFU 15:00
PROVIDERS: ATTEND Physician Assistant
DX: J15.5 Pneumonia due to Escherichia coli (principal); J47.9 Bronchiectasis, uncomplicated; J45.40 Moderate persistent asthma, uncomplicated; Z88.1 Allergy status to other antibiotic agents; Z88.2 Allergy status to sulfonamides; Z88.8 Allergy status to other drugs, medicaments and biological substances; Z91.040 Latex allergy status
CPT/HCPCS: 96365; J1335

== ENCOUNTER 2025-01-02 15:00 | Outpatient (CLI) | payer OTHER ==
[2025-01-02 15:00] VITALS: BP 128/73; O2SAT 97
[2025-01-02] MEDS: ERTAPENEM SODIUM 1 GM in NS MINI-BAG PLUS 50 ML IV ONE (15:16)
[2025-01-02 15:55] VITALS: BP 115/55; O2SAT 96
== END 2025-01-02 15:55 ==
LOC: M INFU 15:00
PROVIDERS: ATTEND Physician Assistant
DX: J15.5 Pneumonia due to Escherichia coli (principal); J47.9 Bronchiectasis, uncomplicated; J45.40 Moderate persistent asthma, uncomplicated; Z88.2 Allergy status to sulfonamides; Z88.1 Allergy status to other antibiotic agents; Z88.8 Allergy status to other drugs, medicaments and biological substances; Z91.040 Latex allergy status
CPT/HCPCS: 96365; J1335

== ENCOUNTER 2025-01-03 11:14 | Outpatient (CLI) | payer OTHER ==
[~2025-01-03] VITALS: Ht 170.2 cm; Wt 176.0 kg
[2025-01-03] MEDS: ERTAPENEM SODIUM 1 GM in NS MINI-BAG PLUS 50 ML IV ONE (11:25)
[2025-01-03 12:00] VITALS: BP 137/85; O2SAT 98
== END 2025-01-03 12:00 | disposition home or self-care (01) ==
LOC: M INFU 11:14
PROVIDERS: ATTEND Physician Assistant
DX: J15.5 Pneumonia due to Escherichia coli (principal); J47.9 Bronchiectasis, uncomplicated; J45.40 Moderate persistent asthma, uncomplicated; Z88.1 Allergy status to other antibiotic agents; Z88.2 Allergy status to sulfonamides; Z88.8 Allergy status to other drugs, medicaments and biological substances; Z91.040 Latex allergy status
CPT/HCPCS: 96365; J1335

== ENCOUNTER 2025-01-04 10:41 | Outpatient (CLI) | payer OTHER ==
[~2025-01-04] VITALS: Ht 170.2 cm; Wt 176.0 kg
[2025-01-04] MEDS: ERTAPENEM SODIUM 1 GM in NS MINI-BAG PLUS 50 ML IV ONE (11:17)
[2025-01-04 11:55] VITALS: BP 133/81; O2SAT 100
== END 2025-01-04 11:55 | disposition home or self-care (01) ==
LOC: M INFU 10:41
PROVIDERS: ATTEND Physician Assistant
DX: J15.5 Pneumonia due to Escherichia coli (principal); J47.9 Bronchiectasis, uncomplicated; J45.40 Moderate persistent asthma, uncomplicated; Z88.1 Allergy status to other antibiotic agents; Z88.2 Allergy status to sulfonamides; Z88.8 Allergy status to other drugs, medicaments and biological substances; Z91.040 Latex allergy status
CPT/HCPCS: 96365; J1335

== ENCOUNTER 2025-01-05 16:00 | Outpatient (CLI) | payer OTHER ==
[~2025-01-05] VITALS: Ht 167.6 cm; Wt 176.0 kg
[2025-01-05 16:00] VITALS: BP 118/58; O2SAT 98
[2025-01-05] MEDS: ERTAPENEM SODIUM 1 GM in NS MINI-BAG PLUS 50 ML IV ONE (16:23)
[2025-01-05 16:55] VITALS: BP 139/77; O2SAT 98
== END 2025-01-05 16:55 ==
LOC: M INFU 16:00
PROVIDERS: ATTEND Physician Assistant
DX: J15.5 Pneumonia due to Escherichia coli (principal); J47.9 Bronchiectasis, uncomplicated; J45.40 Moderate persistent asthma, uncomplicated; Z88.2 Allergy status to sulfonamides; Z88.1 Allergy status to other antibiotic agents; Z88.8 Allergy status to other drugs, medicaments and biological substances; Z91.040 Latex allergy status
CPT/HCPCS: 96365; J1335

== ENCOUNTER 2025-01-06 14:55 | Outpatient (CLI) | payer OTHER ==
[2025-01-06 15:05] VITALS: BP 131/75; O2SAT 100
[2025-01-06] MEDS: ERTAPENEM SODIUM 1 GM in NS MINI-BAG PLUS 50 ML IV SCH (15:23)
== END 2025-01-06 16:00 ==
LOC: M INFU 14:55
PROVIDERS: ATTEND Physician Assistant
DX: J15.5 Pneumonia due to Escherichia coli (principal); J47.9 Bronchiectasis, uncomplicated; J45.40 Moderate persistent asthma, uncomplicated; Z88.1 Allergy status to other antibiotic agents; Z88.2 Allergy status to sulfonamides; Z88.8 Allergy status to other drugs, medicaments and biological substances; Z91.040 Latex allergy status
CPT/HCPCS: 96365; J1335

== ENCOUNTER 2025-01-07 15:00 | Outpatient (CLI) | payer OTHER ==
[~2025-01-07] VITALS: Ht 170.2 cm; Wt 176.0 kg
[2025-01-07 15:00] VITALS: BP 156/80; O2SAT 96
[2025-01-07] MEDS: ERTAPENEM SODIUM 1 GM in NS MINI-BAG PLUS 50 ML IV ONE (15:00)
[2025-01-07 15:35] VITALS: BP 141/92; O2SAT 100
== END 2025-01-07 15:35 ==
LOC: M INFU 15:00
PROVIDERS: ATTEND Physician Assistant
DX: J15.5 Pneumonia due to Escherichia coli (principal); J47.9 Bronchiectasis, uncomplicated; J45.40 Moderate persistent asthma, uncomplicated
CPT/HCPCS: 96365; J1335

== ENCOUNTER 2025-01-08 14:55 | Outpatient (CLI) | payer OTHER ==
[~2025-01-08] VITALS: Ht 170.2 cm; Wt 176.3 kg
[2025-01-08 14:58] VITALS: BP 138/85; O2SAT 98
[2025-01-08] MEDS: ERTAPENEM SODIUM 1 GM in NS MINI-BAG PLUS 50 ML IV SCH (15:03)
[2025-01-08 15:34] VITALS: BP 137/70; O2SAT 99
== END 2025-01-08 15:34 ==
LOC: M INFU 14:55
PROVIDERS: ATTEND Physician Assistant
DX: J15.5 Pneumonia due to Escherichia coli (principal); J47.9 Bronchiectasis, uncomplicated; J45.40 Moderate persistent asthma, uncomplicated; Z88.2 Allergy status to sulfonamides; Z88.1 Allergy status to other antibiotic agents; Z88.8 Allergy status to other drugs, medicaments and biological substances; Z91.040 Latex allergy status
CPT/HCPCS: 96365; J1335

== ENCOUNTER 2025-01-09 15:00 | Outpatient (CLI) | payer OTHER ==
[2025-01-09 15:13] VITALS: BP 131/72; O2SAT 100
[2025-01-09] MEDS: ERTAPENEM SODIUM 1 GM in NS MINI-BAG PLUS 50 ML IV ONE (15:15)
[2025-01-09 15:52] VITALS: BP 135/81; O2SAT 98
== END 2025-01-09 15:55 ==
LOC: M INFU 15:00
PROVIDERS: ATTEND Physician Assistant
DX: J15.5 Pneumonia due to Escherichia coli (principal); J47.9 Bronchiectasis, uncomplicated; J45.40 Moderate persistent asthma, uncomplicated; Z88.2 Allergy status to sulfonamides; Z88.1 Allergy status to other antibiotic agents; Z88.8 Allergy status to other drugs, medicaments and biological substances; Z91.040 Latex allergy status
CPT/HCPCS: 96365; J1335

== ENCOUNTER → 2025-01-09 | Outpatient (REF) | payer OTHER | LOC: M LAB REF 17:50 | PROVIDERS: ATTEND Physician Assistant | DX: J47.9 Bronchiectasis, uncomplicated (principal) ==

== ENCOUNTER 2025-01-10 11:40 | Outpatient (CLI) | payer OTHER ==
[~2025-01-10] VITALS: Ht 170.2 cm; Wt 167.0 kg
[2025-01-10 11:50] VITALS: BP 149/73; O2SAT 100
[2025-01-10] MEDS: ERTAPENEM SODIUM 1 GM in NS MINI-BAG PLUS 50 ML IV ONE (11:52)
== END 2025-01-10 12:25 | disposition home or self-care (01) ==
LOC: M INFU 11:40
PROVIDERS: ATTEND Physician Assistant
DX: J15.5 Pneumonia due to Escherichia coli (principal); J47.9 Bronchiectasis, uncomplicated; J45.40 Moderate persistent asthma, uncomplicated; Z88.1 Allergy status to other antibiotic agents; Z88.2 Allergy status to sulfonamides; Z88.8 Allergy status to other drugs, medicaments and biological substances; Z91.040 Latex allergy status
CPT/HCPCS: 96365; J1335

== ENCOUNTER 2025-01-11 11:32 | Outpatient (CLI) | payer OTHER ==
[~2025-01-11] VITALS: Ht 170.2 cm; Wt 167.0 kg
[2025-01-11] MEDS: ERTAPENEM SODIUM 1 GM in NS MINI-BAG PLUS 50 ML IV ONE (12:01)
[2025-01-11 12:38] VITALS: BP 129/74; O2SAT 100
== END 2025-01-11 12:40 | disposition home or self-care (01) ==
LOC: M INFU 11:32
PROVIDERS: ATTEND Physician Assistant
DX: J15.5 Pneumonia due to Escherichia coli (principal); J47.9 Bronchiectasis, uncomplicated; J45.40 Moderate persistent asthma, uncomplicated; Z88.2 Allergy status to sulfonamides; Z88.1 Allergy status to other antibiotic agents; Z88.8 Allergy status to other drugs, medicaments and biological substances; Z91.040 Latex allergy status
CPT/HCPCS: 96365; J1335

== ENCOUNTER 2025-01-12 16:40 | Outpatient (CLI) | payer OTHER ==
[2025-01-12] MEDS: ERTAPENEM SODIUM 1 GM in NS MINI-BAG PLUS 50 ML IV ONE (16:49)
[2025-01-12 17:24] VITALS: BP 127/87; O2SAT 98
== END 2025-01-12 17:25 | disposition home or self-care (01) ==
LOC: M INFU 16:40
PROVIDERS: ATTEND Physician Assistant
DX: J15.5 Pneumonia due to Escherichia coli (principal); J47.9 Bronchiectasis, uncomplicated; J45.40 Moderate persistent asthma, uncomplicated; Z88.2 Allergy status to sulfonamides; Z88.1 Allergy status to other antibiotic agents; Z88.8 Allergy status to other drugs, medicaments and biological substances; Z91.040 Latex allergy status
CPT/HCPCS: 96365; J1335

== ENCOUNTER → 2025-04-30 | Outpatient (REF) | payer OTHER ==
[~2025-04-30] MED LIST changes: +AZIT-10 PO; +BENL200I IV; +BUSP15TA47 PO; +BUSP30TA PO; +DORZ2SOL20 OU; +FLON1SPR; +GLIP-318 PO; +HYDR200T46 PO; +IRON65TA2 PO; +KP F1200 PO; +LOSA25TA13 PO; +MELO15TA28 PO; +METH-855 PO; +MONT10TA97 PO; +MYCO500T PO; +OMEP40CA4 PO; +PRED-1142 PO; +PROA1AER2 IN; +PROM25TA12 PO; +QVAR80AE8 IN; +RIZA10TA58 PO; +TIRZ7.5P SQ; +VITA-243 PO; +VITA100093 PO
[2025-04-30 17:38] LABS: APPEARANCE, URINE CLEAR (CLEAR); BACTERIA, URINE AUTO 1+ (NEGATIVE); BILIRUBIN, URINE AUTO NEGATIVE (NEGATIVE); BLOOD, URINE BLOOD NEGATIVE (NEGATIVE); GLUCOSE, URINE (UA) AUTO NEGATIVE (NEGATIVE); KETONE, URINE AUTO NEGATIVE (NEGATIVE); LEUKOCYTE ESTERASE, URINE AUTO NEGATIVE (NEGATIVE); MUCUS, URINE SMALL (NEGATIVE); NITRITE, URINE AUTO NEGATIVE (NEGATIVE); PROTEIN, URINE AUTO NEGATIVE (NEGATIVE); RBC, URINE AUTO 1 /HPF (0-3); SPECIFIC GRAVITY URINE AUTO 1.014 (1.002-1.035); SQUAMOUS EPITHELIAL CELL UR AU 3 /HPF (0-6); UROBILINOGEN, URINE AUTO 0.2 mg/dL (0.0-2.0); WBC, URINE AUTO 1 /HPF (0-3)
== END ==
LOC: M SMT 16:52
PROVIDERS: ATTEND Physician Assistant
DX: N39.0 Urinary tract infection, site not specified (principal); R31.21 Asymptomatic microscopic hematuria

== ENCOUNTER → 2025-05-04 | Outpatient (CLI) | payer OTHER ==
[2025-05-04 13:23] LABS: BASO # 0.0 10^3/uL (0.0-0.2); BASO % 0.4 % (0.0-1.0); EOS # 0.1 10^3/uL (0.0-0.5); EOS % 1.1 % (0.0-3.0); LYMPH # 1.9 10^3/uL (1.5-5.0); LYMPH % 17.8 % (24.0-44.0); MONO # 0.7 10^3/uL (0.0-0.8); MONO % 6.6 % (2.0-8.0); NEUTROPHILS # 7.9 10^3/uL (1.5-8.5); NEUTROPHILS % 73.6 % (36.0-66.0); PLATELET COUNT, AUTOMATED 420 10^3/uL (150-450)
[2025-05-04 13:28] LABS: ALT/SGPT 13 U/L (7.0-40); AST/SGOT 9 U/L (<34); C REACTIVE PROTEIN QUANTITATIV 0.92 MG/DL (<1.0); CALCIUM LEVEL 9.3 MG/DL (8.5-10.1); CARBON DIOXIDE LEVEL 30 MMOL/L (20-31); CHLORIDE LEVEL 104 MMOL/L (98-107); CREATININE FOR GFR 0.55 MG/DL (0.55-1.30); GLOMERULAR FILTRATION RATE > 90.0 (>60); POTASSIUM SERUM 4.2 MMOL/L (3.5-5.1); SODIUM LEVEL 144 MMOL/L (136-145)
[2025-05-04 13:54] LABS: ESTIMATED AVERAGE GLUCOSE 151.0 MG/DL (60-110)
[2025-05-07 19:57] LABS: LYME TOTAL ANTIBODY CIA 1.10 Index (<=0.90)
[2025-05-08 01:08] LABS: LYME AB IGG BY CIA <= 0.90 Index (<=0.90); LYME AB IGM BY CIA <= 0.90 Index (<=0.90)
== END ==
LOC: M PLALAB 11:19
PROVIDERS: ATTEND Internal Medicine Infectious Disease
DX: R11.2 Nausea with vomiting, unspecified (principal); M32.9 Systemic lupus erythematosus, unspecified; E11.29 Type 2 diabetes mellitus with other diabetic kidney complication; M54.50 Low back pain, unspecified

== ENCOUNTER → 2025-05-04 | Outpatient (CLI) | payer OTHER | LOC: M PLAIMG 11:16 | PROVIDERS: ATTEND Physician Assistant | DX: Z87.442 Personal history of urinary calculi (principal) ==

== ENCOUNTER 2025-06-17 08:41 | Day surgery (SDC) | payer OTHER ==
[~2025-06-17] VITALS: Ht 172.7 cm; Wt 174.0 kg
[~2025-06-17 08:41] MED LIST changes: +LIDOCAINE 2% 100 MG/5 ML SDV (FOR ANES.) As Ordered ONE; +METH-1100 PO; -METH-855 PO; +REGL10TA6 PO
[2025-06-17] MEDS ORDERED: SLF 3 ML SYR IV PRN ×2 (09:10)
[2025-06-17 10:32] VITALS: TEMP 99
[2025-06-17 10:45] VITALS: BP 146/86; O2SAT 100
[2025-06-17] MEDS: SODIUM CHLORIDE 0.9% INJ 10 ML SYR IV PRN (11:10)
[2025-06-17] MEDS: HEPARIN LOCK FLUSH 100 UNITS/ML 3 ML SYRINGE IV STA (11:10)
[2025-06-17] MEDS ORDERED: SLF 3 ML SYR IV SCH (14:00)
== END 2025-06-17 11:16 | disposition home or self-care (01) ==
LOC: M OPP 08:41
PROVIDERS: ATTEND Surgery
DX: K57.30 Diverticulosis of large intestine without perforation or abscess without bleeding (principal); K64.0 First degree hemorrhoids; K62.5 Hemorrhage of anus and rectum; R14.0 Abdominal distension (gaseous); R11.2 Nausea with vomiting, unspecified; Z88.1 Allergy status to other antibiotic agents; Z88.2 Allergy status to sulfonamides; Z88.8 Allergy status to other drugs, medicaments and biological substances; Z91.040 Latex allergy status; Z79.2 Long term (current) use of antibiotics; Z79.51 Long term (current) use of inhaled steroids; Z79.84 Long term (current) use of oral hypoglycemic drugs; Z79.4 Long term (current) use of insulin; Z79.899 Other long term (current) drug therapy; F17.290 Nicotine dependence, other tobacco product, uncomplicated; J45.909 Unspecified asthma, uncomplicated
CPT/HCPCS: 43239; 45398; 88305; J1642

== ENCOUNTER 2025-06-25 16:56 | Emergency (ER) | payer OTHER ==
[~2025-06-25] VITALS: Ht 172.7 cm; Wt 173.2 kg
[~2025-06-25 16:56] MED LIST changes: -LIDOCAINE 2% 100 MG/5 ML SDV (FOR ANES.) As Ordered ONE
[2025-06-25 18:26] LABS: BASO # 0.1 10^3/uL (0.0-0.2); BASO % 0.4 % (0.0-1.0); EOS # 0.1 10^3/uL (0.0-0.5); EOS % 0.4 % (0.0-3.0); LYMPH # 2.4 10^3/uL (1.5-5.0); LYMPH % 18.0 % (24.0-44.0); MONO # 0.6 10^3/uL (0.0-0.8); MONO % 4.3 % (2.0-8.0); NEUTROPHILS # 10.3 10^3/uL (1.5-8.5); NEUTROPHILS % 76.5 % (36.0-66.0); PLATELET COUNT, AUTOMATED 367 10^3/uL (150-450)
[2025-06-25 18:38] LABS: INR 0.95
[2025-06-25 18:51] LABS: ALT/SGPT 19 U/L (7.0-40); AST/SGOT 12 U/L (<34); CALCIUM LEVEL 9.2 MG/DL (8.5-10.1); CARBON DIOXIDE LEVEL 27 MMOL/L (20-31); CHLORIDE LEVEL 104 MMOL/L (98-107); CREATININE FOR GFR 0.56 MG/DL (0.55-1.30); GLOMERULAR FILTRATION RATE > 90.0 (>60); POTASSIUM SERUM 3.9 MMOL/L (3.5-5.1); SODIUM LEVEL 140 MMOL/L (136-145)
[2025-06-25 18:56] LABS: HCG, SERUM QUALITATIVE NEGATIVE (NEGATIVE)
[2025-06-25] MEDS ORDERED: ISOVUE-370 76% 100 ML VIAL As Ordered ONE (19:22)
[2025-06-25] MEDS ORDERED: GLIP-320 PO (21:23)
[2025-06-25] MEDS ORDERED: PRED5TA PO (21:23)
[2025-06-25] MEDS ORDERED: TIRZ5PEN PO (21:23)
[2025-06-25] MEDS ORDERED: HOME MED LIST COMPLETE! XX SCH (21:25)
[2025-06-25 22:00] VITALS: BP 123/67; TEMP 98.1
[2025-06-25 22:11] VITALS: O2SAT 96
== END 2025-06-25 22:17 | disposition home or self-care (01) ==
LOC: M ED 16:56
DX: K92.2 Gastrointestinal hemorrhage, unspecified (principal); E11.9 Type 2 diabetes mellitus without complications; M32.9 Systemic lupus erythematosus, unspecified; M06.9 Rheumatoid arthritis, unspecified; J45.909 Unspecified asthma, uncomplicated; G43.909 Migraine, unspecified, not intractable, without status migrainosus; J47.9 Bronchiectasis, uncomplicated; K57.30 Diverticulosis of large intestine without perforation or abscess without bleeding; K76.0 Fatty (change of) liver, not elsewhere classified; Z79.899 Other long term (current) drug therapy; Z88.2 Allergy status to sulfonamides; Z88.1 Allergy status to other antibiotic agents; Z88.8 Allergy status to other drugs, medicaments and biological substances; Z91.040 Latex allergy status
CPT/HCPCS: 74174; 80048; 80076; 84703; 85025; 85610; 85730; 86850; 86900; 86901; 93041; 99285; Q9967

== ENCOUNTER → 2025-07-22 | Outpatient (CLI) | payer OTHER ==
[~2025-07-22] MED LIST changes: +GLIP-320 PO; +PRED5TA PO; +TIRZ5PEN PO
== END ==
LOC: M RAD 08:37
PROVIDERS: ATTEND Family Medicine
DX: K31.84 Gastroparesis (principal)
CPT/HCPCS: 78264; A9541

== ENCOUNTER → 2025-08-14 | Outpatient (REF) | payer OTHER | LOC: M LABSMT 12:01 | PROVIDERS: ATTEND Physician Assistant | DX: R39.9 Unspecified symptoms and signs involving the genitourinary system (principal) ==

== ENCOUNTER → 2025-08-14 | Outpatient (REF) | payer OTHER ==
[2025-08-14 17:54] LABS: AMORPHOUS SEDIMENT LARGE (NEGATIVE); APPEARANCE, URINE TURBID (CLEAR); BACTERIA, URINE AUTO NEGATIVE (NEGATIVE); BILIRUBIN, URINE AUTO NEGATIVE (NEGATIVE); BLOOD, URINE BLOOD NEGATIVE (NEGATIVE); GLUCOSE, URINE (UA) AUTO 1+ mg/dL (NEGATIVE); KETONE, URINE AUTO 1+ mg/dL (NEGATIVE); LEUKOCYTE ESTERASE, URINE AUTO NEGATIVE (NEGATIVE); MUCUS, URINE LARGE (NEGATIVE); NITRITE, URINE AUTO NEGATIVE (NEGATIVE); PROTEIN, URINE AUTO 1+ mg/dL (NEGATIVE); RBC, URINE AUTO 0 /HPF (0-3); SPECIFIC GRAVITY URINE AUTO 1.031 (1.002-1.035); SQUAMOUS EPITHELIAL CELL UR AU 2 /HPF (0-6); UROBILINOGEN, URINE AUTO 0.2 mg/dL (0.0-2.0); WBC, URINE AUTO 0 /HPF (0-3)
== END ==
LOC: M SMT 17:08
PROVIDERS: ATTEND Physician Assistant
DX: R39.9 Unspecified symptoms and signs involving the genitourinary system (principal)

== ENCOUNTER → 2025-09-11 | Outpatient (REF) | payer OTHER | LOC: M SFHCPLAZ 16:23 | PROVIDERS: ATTEND Family Medicine | DX: E11.29 Type 2 diabetes mellitus with other diabetic kidney complication (principal) ==